=== PATIENT | male | born 1965 | race African-American/Black ===

== ENCOUNTER 2017-08-31 20:32 | Emergency (ER) | payer MEDICARE ==
[~2017-08-31] VITALS: Ht 188 cm; Wt 113.5 kg
[2017-08-31 21:07] VITALS: BP 102/68; PULSE 107; RESP 16; TEMP 98.4; O2SAT 98
[2017-08-31 22:10] VITALS: BP 126/81; PULSE 99; RESP 18; O2SAT 99
[2017-08-31] MEDS ORDERED: IBUPROFEN 600 MG TAB PO ONE (22:45)
[2017-08-31] MEDS ORDERED: oxyCODONE/ACETAMINOPHEN 5 MG/325 MG TAB PO ONE (22:45)
[2017-08-31] MEDS ORDERED: KETOROLAC TROMETHAMINE 60 MG/2 ML (IM) VIAL IM ONE (23:00)
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
--- NOTE | 2017-08-31 23:41 | RADRPT ---
EXAM DATE/TIME: 08/31/2017 23:08 [facility] COMPARISON: No previous studies available for comparison. INDICATIONS : Foot pain. MEDICAL HISTORY : Congestive heart failure. Osteoporosis. Arthritis. SURGICAL HISTORY : Left ankle. Bilateral feet. ENCOUNTER: Initial ACUITY: 2 weeks PAIN SCORE: 10/10 LOCATION: Left foot FINDINGS: Three view examination of the left foot demonstrates marked pes planus abnormality. There is shorteni ng of the fourth metatarsal bone. Deformity of the midfoot with a short navicular bone. Screws across the medial malleolus process old tibial fracture. CONCLUSION: Deformities of the ankle related to surgery and trauma. No acute fracture seen. Larry Johnson MD on August 31, 2017 at 23:38 Board Certified Radiologist. This report was verified electronically.
--- NOTE | 2017-08-31 23:42 | RADRPT ---
EXAM DATE/TIME: 08/31/2017 23:08 [facility] COMPARISON: No previous studies available for comparison. INDICATIONS : Foot pain. MEDICAL HISTORY : Osteoporosis. Congestive heart failure. Arthritis. SURGICAL HISTORY : Left ankle. Bilateral foot. ENCOUNTER: Initial ACUITY: 2 weeks PAIN SCORE: 10/10 LOCATION: Right foot FINDINGS: Three view examination of the right foot demonstrates moderate pes planus. No obvious fracture. Spurr ing at the base of the fifth metatarsal bone.. The tarsal bones appear intact. Mild hallux valgus d eformity The interphalangeal and metatarsophalangeal joints are intact. The calcaneus is intact. Kuldeep ny mineralization is normal. CONCLUSION: No obvious fracture seen. Moderate pes planus. Larry Johnsno MD on August 31, 2017 at 23:40 Board Certified Radiologist. This report was verified electronically.
--- NOTE | 2017-08-31 23:44 | RADRPT ---
EXAM DATE/TIME: 08/31/2017 23:11 [facility] COMPARISON: FOOT LEFT COMPLETE ([id number]), August 31, 2017, 23:08. INDICATIONS : Ankle pain. MEDICAL HISTORY : Congestive heart failure. Osteoporosis. SURGICAL HISTORY : Left ankle. Bilateral foot. ENCOUNTER: Initial ACUITY: 2 weeks PAIN SCORE: 10/10 LOCATION: Left ankle FINDINGS: Three view exam was performed of the left ankle. The patient's had previous fracture fixation of the distal tibia. The tib-fib joint has fused above the tibiotalar joint. Hardware is intact. Arthritic c hange at the tibiotalar joint. Pes planus.. Bony mineralization is normal. CONCLUSION: Previous fracture fixation. No acute fracture seen. Larry Johnson MD on August 31, 2017 at 23:42 Board Certified Radiologist. This report was verified electronically.
[2017-09-01] MEDS ORDERED: IBUP-232 PO (00:40)
[2017-09-01] MEDS ORDERED: TRAM50TA PO (00:40)
[2017-09-01] MEDS ORDERED: CIPR-9 PO (00:42)
[2017-09-01 00:53] VITALS: BP 131/71; PULSE 88; RESP 18; O2SAT 99
== END 2017-09-01 01:00 | disposition home or self-care (01) ==
LOC: NEPE 20:32
DX: M79.672 Pain in left foot (principal)
CPT/HCPCS: 73610; 73630; 96372; 99283; J1885; L3260